=== PATIENT | male | born 1960 | race Caucasian/White ===

== ENCOUNTER 2017-07-15 21:34 | Inpatient (IN) | payer BC ==
[2017-07-15 22:16] LABS: Basophils % (A) 1 %; Eosinophils # (A) 0.1 k/uL (0-0.7); Eosinophils % (A) 2 %; HGB 16.1 gm/dL (13.0-17.5); Lymphocytes # (A) 2.5 k/uL (1.0-4.8); Lymphocytes % (A) 36 %; MCH 31.5 pg (25.0-35.0); MCHC 35.1 g/dL (31.0-37.0); MCV 89.9 fL (80.0-100.0); Mean Platelet Volume 7.3; Monocytes # (A) 0.6 k/uL (0-1.0); Monocytes % (A) 9 %; Neutrophils # (A) 3.7 k/uL (1.3-7.7); Neutrophils % (A) 52 %; Platelet Count 262 k/uL (150-450); RBC 5.12 m/uL (4.30-5.90); RDW 12.9 % (11.5-15.5)
[2017-07-15 22:26] LABS: ALT 82 U/L (21-72); AST 43 U/L (17-59); Alkaline Phosphatase 85 U/L (38-126); Anion Gap 14 mmol/L; Blood Urea Nitrogen 16 mg/dL (9-20); Calcium 9.5 mg/dL (8.4-10.2); Carbon Dioxide 24 mmol/L (22-30); Chloride 101 mmol/L (98-107); Glucose 341 mg/dL (74-99); Magnesium 1.8 mg/dL (1.6-2.3); Potassium 4.2 mmol/L (3.5-5.1); Sodium 139 mmol/L (137-145); Total Bilirubin 0.4 mg/dL (0.2-1.3); Total Protein 7.2 g/dL (6.3-8.2)
[2017-07-15 22:31] LABS: Prothrombin Time 10.2 sec (9.0-12.0)
[2017-07-15 22:39] LABS: Creatine Kinase 56 U/L (55-170)
[2017-07-15 22:40] LABS: Partial Thromboplastin Time 21.2 sec (22.0-30.0)
[2017-07-15 22:51] LABS: Appearance,Urine Clear (Clear); Bilirubin,Urine Negative (Negative); Blood,Urine Negative (Negative); Color,Urine Light Yellow; Glucose,Urine (UA) 4+ (Negative); Ketones,Urine Trace (Negative); Leukocyte Esterase,Urine Negative (Negative); Nitrite,Urine Negative (Negative); PH, Urine 5.5 (5.0-8.0); Protein,Urine Negative (Negative); Specific Gravity,Urine 1.034 (1.001-1.035); Urobilinogen,Urine <2.0 mg/dL (<2.0)
[2017-07-15 22:52] LABS: Creatine Kinase MB 1.1 ng/mL (0.0-2.4); Troponin I <0.012 ng/mL (0.000-0.034)
--- NOTE | 2017-07-15 22:52 | XR ---
EXAMINATION TYPE: XR chest 2V DATE OF EXAM: 07/15/2017 COMPARISON: NONE HISTORY: Palpitations. Syncope. TECHNIQUE: Frontal and lateral views of the chest are obtained. FINDINGS: Heart and mediastinum are normal. Lungs are clear. Diaphragm is normal. There are chest le ads. Bony thorax appears normal. IMPRESSION: Normal chest
[2017-07-15] MEDS ORDERED: SODIUM CHLORIDE 0.9% 1,000 ML IV ONE (23:11)
[2017-07-15] MEDS ORDERED: NALOXONE 0.4 MG/ML 1 ML VIAL IV PRN (23:29)
[2017-07-15] MEDS ORDERED: ONDANSETRON 4 MG/2 ML VIAL IVP PRN (23:29)
--- NOTE | 2017-07-15 23:36 | ED ---
General Adult HPI - General Chief complaint: Syncope Stated complaint: Syncope Time Seen by Provider: 07/15/17 22:06 Source: patient, RN notes reviewed, old records reviewed Mode of arrival: wheelchair Limitations: no limitations - History of Present Illness Initial comments: 57 yo male presenting with momentary alteration level of consciousness. Patient states he was walking in his home, he felt fluttering and palpitations in his chest, fell to the ground and was being woken by his . His states he was unconscious for less than 1 minute. He was confused momentarily however he regained consciousness quickly. There is no seizure activity. Patient denied any preceding chest pain or pain after the fall. There is no reported injury. Denies vomiting or diarrhea. He has some mild diarrhea yesterday. No fever or chills. According to his he has been eating and drinking normally. He has been consuming large amount of liquid. - Related Data Allergies Allergy/AdvReac Type Severity Reaction Status Date / Time No Known Allergies Allergy Verified 07/15/17 21:43 Review of Systems ROS Statement: Those systems with pertinent positive or pertinent negative responses have been documented in the HPI. ROS Other: All systems not noted in ROS Statement are negative. Past Medical History Past Medical History: No Reported History History of Any Multi-Drug Resistant Organisms: None Reported Past Surgical History: Orthopedic Surgery Past Psychological History: No Psychological Hx Reported Smoking Status: Never smoker Past Alcohol Use History: Occasional Past Drug Use History: None Reported General Exam Limitations: no limitations General appearance: alert, in no apparent distress Head exam: Present: atraumatic, normocephalic Eye exam: Present: normal appearance, PERRL ENT exam: Present: mucous membranes dry Neck exam: Present: normal inspection. Absent: tenderness, meningismus Respiratory exam: Present: normal lung sounds bilaterally. Absent: respiratory distress, wheezes Cardiovascular Exam: Present: regular rate, normal rhythm GI/Abdominal exam: Present: soft. Absent: distended, tenderness Extremities exam: Present: normal inspection, normal capillary refill. Absent: pedal edema, calf tenderness Neurological exam: Present: alert, oriented X3, CN II-XII intact. Absent: motor sensory deficit Psychiatric exam: Present: normal affect, normal mood Skin exam: Present: warm, dry, intact. Absent: cyanosis, diaphoretic Course Vital Signs 07/15/17 07/15/17 07/15/17 21:40 22:43 23:00 Temperature 98.2 F Pulse Rate 83 62 70 Respiratory 18 16 20 Rate Blood Pressure 129/87 146/87 139/88 O2 Sat by Pulse 95 97 97 Oximetry EKG Findings - EKG Comments: EKG Findings:: EKG: Normal sinus rhythm, nonspecific T-wave abnormality in lead 3. There is baseline artifact. No definitive signs of ischemia. Rate of 74, NJ interval 170, QRS duration 62, QTC 401 Medical Decision Making - Medical Decision Making 57 yo male with syncopal episode. EKG shows normal sinus rhythm. There is concern for arrhythmia given the preceding palpitations. Workup initiated in the ER. Normal white blood cell count, stable hemoglobin, electrolytes are within normal limits. Glucose is 341 after IV hydration and the patient has no known history of diabetes. Troponin negative. Urinalysis shows 4+ glucose and trace ketones. CO2 was 24 and anion gap is 14. No DKA. Patient receives additional 1 L normal saline bolus. Syncope may be related to dehydration secondary to new onset diabetes. However given the chief complaint of palpitations prior to syncopal episode. He will be observed for rehydration as well as telemetry monitoring. - Lab Data Result diagrams: 07/15/17 22:00 07/15/17 22:00 Lab Results 07/15/17 07/15/17 07/15/17 Range/Units 22:00 22:00 22:00 WBC 7.0 (3.8-10.6) k/uL RBC 5.12 (4.30-5.90) m/uL Hgb 16.1 (13.0-17.5) gm/dL Hct 46.0 (39.0-53.0) % MCV 89.9 (80.0-100.0) fL MCH 31.5 (25.0-35.0) pg MCHC 35.1 (31.0-37.0) g/dL RDW 12.9 (11.5-15.5) % Plt Count 262 (150-450) k/uL Neutrophils % 52 % Lymphocytes % 36 % Monocytes % 9 % Eosinophils % 2 % Basophils % 1 % Neutrophils # 3.7 (1.3-7.7) k/uL Lymphocytes # 2.5 (1.0-4.8) k/uL Monocytes # 0.6 (0-1.0) k/uL Eosinophils # 0.1 (0-0.7) k/uL Basophils # 0.0 (0-0.2) k/uL PT (9.0-12.0) sec INR (<1.2) APTT (22.0-30.0) sec Sodium 139 (137-145) mmol/L Potassium 4.2 (3.5-5.1) mmol/L Chloride 101 (98-107) mmol/L Carbon Dioxide 24 (22-30) mmol/L Anion Gap 14 mmol/L BUN 16 (9-20) mg/dL Creatinine 0.80 (0.66-1.25) mg/dL Est GFR (CKD-EPI)AfAm >90 (>60 ml/min/1.73 sqM) Est GFR (CKD-EPI)NonAf >90 (>60 ml/min/1.73 sqM) Glucose 341 H (74-99) mg/dL Calcium 9.5 (8.4-10.2) mg/dL Magnesium 1.8 (1.6-2.3) mg/dL Total Bilirubin 0.4 (0.2-1.3) mg/dL AST 43 (17-59) U/L ALT 82 H (21-72) U/L Alkaline Phosphatase 85 (38-126) U/L Total Creatine Kinase 56 (55-170) U/L CK-MB (CK-2) 1.1 (0.0-2.4) ng/mL CK-MB (CK-2) Rel Index 2.0 Troponin I <0.012 (0.000-0.034) ng/mL Total Protein 7.2 (6.3-8.2) g/dL Albumin 4.0 (3.5-5.0) g/dL Urine Color Urine Appearance (Clear) Urine pH (5.0-8.0) Ur Specific [place] (1.001-1.035) Urine Protein (Negative) Urine Glucose (UA) (Negative) Urine Ketones (Negative) Urine Blood (Negative) Urine Nitrite (Negative) Urine Bilirubin (Negative) Urine Urobilinogen (<2.0) mg/dL Ur Leukocyte Esterase (Negative) 07/15/17 07/15/17 Range/Units 22:00 22:44 WBC (3.8-10.6) k/uL RBC (4.30-5.90) m/uL Hgb (13.0-17.5) gm/dL Hct (39.0-53.0) % MCV (80.0-100.0) fL MCH (25.0-35.0) pg MCHC (31.0-37.0) g/dL RDW (11.5-15.5) % Plt Count (150-450) k/uL Neutrophils % % Lymphocytes % % Monocytes % % Eosinophils % % Basophils % % Neutrophils # (1.3-7.7) k/uL Lymphocytes # (1.0-4.8) k/uL Monocytes # (0-1.0) k/uL Eosinophils # (0-0.7) k/uL Basophils # (0-0.2) k/uL PT 10.2 (9.0-12.0) sec INR 1.0 (<1.2) APTT 21.2 L (22.0-30.0) sec Sodium (137-145) mmol/L Potassium (3.5-5.1) mmol/L Chloride (98-107) mmol/L Carbon Dioxide (22-30) mmol/L Anion Gap mmol/L BUN (9-20) mg/dL Creatinine (0.66-1.25) mg/dL Est GFR (CKD-EPI)AfAm (>60 ml/min/1.73 sqM) Est GFR (CKD-EPI)NonAf (>60 ml/min/1.73 sqM) Glucose (74-99) mg/dL Calcium (8.4-10.2) mg/dL Magnesium (1.6-2.3) mg/dL Total Bilirubin (0.2-1.3) mg/dL AST (17-59) U/L ALT (21-72) U/L Alkaline Phosphatase (38-126) U/L Total Creatine Kinase (55-170) U/L CK-MB (CK-2) (0.0-2.4) ng/mL CK-MB (CK-2) Rel Index Troponin I (0.000-0.034) ng/mL Total Protein (6.3-8.2) g/dL Albumin (3.5-5.0) g/dL Urine Color Light Yellow Urine Appearance Clear (Clear) Urine pH 5.5 (5.0-8.0) Ur Specific [place] 1.034 (1.001-1.035) Urine Protein Negative (Negative) Urine Glucose (UA) 4+ H (Negative) Urine Ketones Trace H (Negative) Urine Blood Negative (Negative) Urine Nitrite Negative (Negative) Urine Bilirubin Negative (Negative) Urine Urobilinogen <2.0 (<2.0) mg/dL Ur Leukocyte Esterase Negative (Negative) Disposition Clinical Impression: Syncope and collapse, Dehydration, Diabetes mellitus, new onset Disposition: ADMITTED IP TO THIS [facility] Condition: Stable Is patient prescribed a controlled substance at d/c from ED?: No Referrals: Justin Akbar MD [Primary Care Provider] - 1-2 days Decision to Admit Reason: Admit from EC Decision Date: 07/15/17 Decision Time: 23:36
[2017-07-16] MEDS: SODIUM CHLORIDE 0.9% 1,000 ML IV SCH ×2 (01:41→13:18)
[2017-07-16 07:35] LABS: Glucose,Whole Blood 240 mg/dL (75-99)
[2017-07-16] MEDS: metFORMIN 500 MG TAB PO SCH ×2 (07:45→17:42)
[2017-07-16] MEDS ORDERED: INSULIN REGULAR 100 UNIT in SODIUM CHLORIDE 0.9% 100 ML IV SCH (07:45)
[2017-07-16] MEDS ORDERED: INSULIN ASPART 100 UNIT/ML 1 ML 10 ML VIAL SQ ONE (07:49)
[2017-07-16 09:12] LABS: Basophils # (A) 0.1 k/uL (0-0.2); Basophils % (A) 1 %; Eosinophils # (A) 0.1 k/uL (0-0.7); Eosinophils % (A) 1 %; HCT 46.1 % (39.0-53.0); HGB 15.7 gm/dL (13.0-17.5); Lymphocytes # (A) 1.8 k/uL (1.0-4.8); Lymphocytes % (A) 30 %; MCH 31.5 pg (25.0-35.0); MCV 92.6 fL (80.0-100.0); Mean Platelet Volume 6.9; Monocytes # (A) 0.3 k/uL (0-1.0); Monocytes % (A) 6 %; Neutrophils # (A) 3.7 k/uL (1.3-7.7); Neutrophils % (A) 61 %; Platelet Count 233 k/uL (150-450); RBC 4.98 m/uL (4.30-5.90); RDW 13.1 % (11.5-15.5)
[2017-07-16 09:44] LABS: Glucose,Whole Blood 260 mg/dL (75-99)
[2017-07-16 09:44] LABS: ALT 82 U/L (21-72); AST 46 U/L (17-59); Albumin 3.8 g/dL (3.5-5.0); Alkaline Phosphatase 79 U/L (38-126); Anion Gap 12 mmol/L; Blood Urea Nitrogen 13 mg/dL (9-20); Calcium 8.8 mg/dL (8.4-10.2); Carbon Dioxide 23 mmol/L (22-30); Chloride 103 mmol/L (98-107); Glucose 296 mg/dL (74-99); Magnesium 1.6 mg/dL (1.6-2.3); Potassium 4.5 mmol/L (3.5-5.1); Sodium 138 mmol/L (137-145); Total Bilirubin 0.7 mg/dL (0.2-1.3); Total Protein 6.9 g/dL (6.3-8.2)
[2017-07-16 11:55] LABS: Glucose,Whole Blood 160 mg/dL (75-99)
[2017-07-16] MEDS ORDERED: INSULIN ASPART 100 UNIT/ML 1 ML 10 ML VIAL SQ SCH (12:30)
[2017-07-16 13:46] LABS: Glucose,Whole Blood 225 mg/dL (75-99)
[2017-07-16 15:41] LABS: Glucose,Whole Blood 93 mg/dL (75-99)
[2017-07-16 16:17] LABS: Glucose,Whole Blood 86 mg/dL (75-99)
[2017-07-16 17:01] LABS: Glucose,Whole Blood 124 mg/dL (75-99)
[2017-07-16] MEDS: LISINOPRIL 2.5 MG TAB PO SCH (17:42)
[2017-07-16] MEDS: ENOXAPARIN 40 MG/0.4 ML SYRINGE SQ SCH (17:42)
[2017-07-16 17:51] LABS: Hemoglobin A1C 10.7 % (4.0-6.0)
--- NOTE | 2017-07-16 17:57 | HP ---
HISTORY AND PHYSICAL DATE OF ADMISSION: 07/15/2017 DATE OF SERVICE: 07/16/2017 PRESENTING COMPLAINT: Passed out. HISTORY OF PRESENTING COMPLAINT: This is a very pleasant 57-year-old patient of Dr. Akbar. He was in the house yesterday, walking inside, when he felt a fluttering sensation in the chest and felt a bit lightheaded. Next thing he had passed out; patient may have passed out for about 20 seconds. There was no tongue-biting, no incontinence, no shaking episode. The patient came around nicely. The patient was brought into the ER, found to have a sugar of 341. UA was showing glucose 4+. Troponins were negative. EKG unremarkable. Patient was admitted to the hospital. I started the patient on IV insulin drip. Patient has been diagnosed with high cholesterol in the past. Patient did not take any medication. Patient states he has had fluttering sensation on and off, but never passed out before. He is relatively active. Patient has put on some weight. REVIEW OF SYSTEMS: CONSTITUTIONAL: Tired. HEENT: None. RESPIRATORY: None. CARDIOVASCULAR: As above. GASTROINTESTINAL: None. GENITOURINARY: None. MUSCULOSKELETAL: None. DERMATOLOGICAL: None. HEMATOLOGICAL: None. LYMPHATICS: None. PSYCHIATRY: None. NEUROLOGICAL: As above. PAST MEDICAL HISTORY: Hypercholesteremia. PAST SURGICAL HISTORY: Orthopedic surgery. SOCIAL HISTORY: Patient local [employer]. . Does not smoke or drink alcohol. FAMILY HISTORY: Both the patient had diabetes, type 2. One of the daughters had diabetes, type 1. HOME MEDICATIONS: None. ALLERGIES: NONE. PHYSICAL EXAMINATION: VITAL SIGNS ON PRESENTATION: Temperature 98.2, pulse 83, respiration 18, blood pressure 129/87, pulse ox 95% on room air. GENERAL APPEARANCE: Well built; BMI 33.2. Lying in bed, not in distress. EYES: Pupils equal. Conjunctivae normal. HEENT: External appearance of nose and ears normal. Oral cavity normal. NECK: JVD not raised. Mass not palpable. RESPIRATORY: Effort normal. Lungs are clear. CARDIOVASCULAR: First and second sounds normal. No edema. ABDOMEN: Soft, non-tender. Liver and spleen not palpable. LYMPHATIC: No lymph node palpable in neck or axillae. PSYCHIATRY: Alert and oriented x3. Mood and affect normal. NEUROLOGICAL: Pupils equal. Cranial nerves grossly intact. Power and sensation grossly intact. INVESTIGATIONS: White count 7, hemoglobin 16.1, potassium 4.2. BUN and creatinine are normal. Accu- Cheks 341, 240, 296. UA positive for glucose 4+, ketone trace. EKG shows some nonspecific findings. ASSESSMENT: 1. Syncope. This is a patient who had a further fluttering sensation, lightheadedness, passed out; most likely arrhythmia. Patient had these sensations on and off, but never much symptomatic until the passing out. Patient has been put on a cardiac cath lab manager to rule out any underlying arrhythmia. If that is negative, patient will need an outpatient event monitor at least. 2. New onset of diabetes mellitus, type 2. 3. Hyperlipidemia. PLAN: Patient is put on telemetry. Initially he was put on IV insulin drip. Will switch the patient over to metformin. Will get diabetes education, will have the patient see a dietitian. Will check a lipid profile in the morning. Patient's 2D echocardiogram has been ordered. Cardiology is being consulted. Care was discussed with the patient. Questions were answered. MMODL / IJN: [id number] /
[2017-07-16] MEDS ORDERED: ACETAMINOPHEN TAB 325 MG TAB PO PRN (20:37)
[2017-07-16 20:53] LABS: Glucose,Whole Blood 219 mg/dL (75-99)
[2017-07-16 22:42] VITALS: RESP 16
[2017-07-17 03:22] LABS: Cholesterol 221 mg/dL (<200); HDL Cholesterol 22 mg/dL (40-60); LDL Cholesterol,Calculated 151 mg/dL (0-99); Triglycerides 238 mg/dL (<150)
[2017-07-17] MEDS: SODIUM CHLORIDE 0.9% 1,000 ML IV SCH (05:57)
[2017-07-17 07:07] LABS: Glucose,Whole Blood 222 mg/dL (75-99)
[2017-07-17] MEDS: LISINOPRIL 2.5 MG TAB PO SCH ×2 (08:05→08:13)
[2017-07-17] MEDS: ENOXAPARIN 40 MG/0.4 ML SYRINGE SQ SCH ×2 (08:05→08:31)
[2017-07-17] MEDS: INSULIN ASPART 100 UNIT/ML 1 ML 10 ML VIAL SQ SCH ×2 (08:05→12:28)
[2017-07-17] MEDS: metFORMIN 500 MG TAB PO SCH (08:06)
[2017-07-17] MEDS ORDERED: ATORVASTATIN 20 MG TAB PO SCH (09:00)
[2017-07-17 09:55] VITALS: BMI 33.2
--- NOTE | 2017-07-17 10:07 | P.CRDCN ---
History of Present Illness History of present illness: Mr. Morocho is a pleasant 57-year-old male past medical history significant for gastroesophageal reflux disease and possible mild CAD. He states he underwent cardiac catheterization 8 years ago and was told he has no major blockages and was advised medical therapy. He was given medications however, stopped taking them. Those records are unavailable to be at this time. 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 We have been asked to see him in consultation for a syncopal episode. Sunday afternoon at home he felt an odd fluttering sensation in his chest. He has felt this feeling in the past and it has always subsided on its own with no specific alleviating or aggravating factor. He denies a rapid heartbeat just that is felt like it was flip flopping. He walked over to the window and felt lightheaded and next thing he knows he woke up on the floor. His was present at the time. No loss of bowel/bladder, no tongue biting, no shaking or seizure like activity. Once he woke up he felt good in his opinion. He denies symptoms of chest pain, shortness of breath, nausea, vomiting, diaphoresis or any further palpitations after waking up. Prior to the syncope he denies chest pain, shortness of breath , nausea, vomiting or diaphoresis. Since coming into the hospital he has been newly diagnosed with diabetes mellitus with an initial blood sugar of 341 and A1C 10.7. He has been started on insulin, metformin, atorvastatin and lisinopril. He denies any further symptoms of palpitations or dizziness since admission and telemetry tracings have been unremarkable. EKG on admission reveals sinus mechanism with no acute ST or T-wave abnormalities. Chest xray is negative for an acute cardiopulmonary process. Laboratory data reviewed, hgb 15.7, plt 233, sodium 138, potassium 4.5, magnesium 1.6, creatinine 0.75, cardiac enzymes negative x1, LDL 151, HDL 22, triglycerides 238, total cholesterol 221. He takes no daily medications. Review of Systems At the time of my exam: CONSTITUTIONAL: Denies fever. Denies chills. EYES: Denies blurred vision. Denies vision changes. Denies eye pain. EARS, NOSE, MOUTH & THROAT: Denies headache. Denies sore throat. Denies ear pain. CARDIOVASCULAR: Denies chest pain. Denies shortness of breath. Denies orthopnea. Denies PND. Denies palpitations. RESPIRATORY: Denies cough. GASTROINTESTINAL: Denies abdominal pain. Denies diarrhea. Denies constipation. Denies nausea. Denies vomiting. MUSCULOSKELETAL: Denies myalgias. INTEGUMENTARY: Denies pruitis. Denies rash. NEUROLOGIC: Denies numbness. Denies tingling. Denies weakness. PSYCHIATRIC: Denies anxiety. Denies depression. ENDOCRINE: Denies fatigue. Denies weight change. Denies polydipsia. Denies polyurina. GENITOURINARY: Denies burning, hematuria or urgency with micturation. HEMATOLOGIC: Denies history of anemia. Denies bleeding. Past Medical History Past Medical History: No Reported History Additional Past Medical History / Comment(s): possibly new diabetic 07/16/17 waiting for labs results History of Any Multi-Drug Resistant Organisms: None Reported Past Surgical History: Orthopedic Surgery Past Anesthesia/Blood Transfusion Reactions: No Reported Reaction Past Psychological History: No Psychological Hx Reported Smoking Status: Never smoker Past Alcohol Use History: Occasional Past Drug Use History: None Reported - Past Family History Father Family Medical History: Diabetes Mellitus Additional Family Medical History / Comment(s): heart failure Medications and Allergies Home Medications Medication Instructions Recorded Confirmed Type No Known Home Medications [No 07/15/17 07/16/17 History Known Home Medications] Allergies Allergy/AdvReac Type Severity Reaction Status Date / Time No Known Allergies Allergy Verified 07/16/17 08:51 Physical Exam Vitals: Vital Signs Temp Pulse Resp BP BP BP BP 07/17/17 05:56 96.8 F L 60 16 132/85 07/16/17 22:41 97.2 F L 64 16 151/88 07/16/17 16:18 147/88 147/88 123/79 07/16/17 16:00 20 07/16/17 14:43 98.3 F 72 20 129/77 Pulse Ox 07/17/17 05:56 96 07/16/17 22:41 96 07/16/17 16:18 07/16/17 16:00 07/16/17 14:43 95 Intake and Output 07/16/17 07/17/17 07/17/17 22:59 06:59 14:59 Intake Total 210 260 Balance 210 260 Intake: Intake, IV Titration 10 Amount Insulin Regular 100 unit 10 In Sodium Chloride 0.9% 100 ml @ Titrate IV .Q0M [facility] Rx#:[id number] Oral 200 260 Other: Voiding Method Toilet # Voids 1 1 Weight 111.13 kg Blood pressure 132/85 heart rate 68 afebrile maintaining oxygen saturation on room air GENERAL: This is a 57-year-old male in no apparent distress at the time of my examination. Obese. HEENT: Head is atraumatic, normocephalic. Pupils are equal, round. Sclerae anicteric. Conjunctivae are clear. Mucous membranes of the mouth are moist. Neck is supple. There is no jugular venous distention. No carotid bruit is heard. LUNGS: Clear to auscultation no wheezes, rales or rhonchi. No chest wall tenderness is noted on palpation or with deep breathing. HEART: Regular rate and rhythm without murmurs, rubs or gallops. S1 and S2 heard. ABDOMEN: Soft, nontender. Bowel sounds are heard. No organomegaly noted. EXTREMITIES: No evidence of peripheral edema and no calf tenderness noted. VASCULAR: Radial and dorsalis pedis pulses palpated, no evidence of clubbing. NEUROLOGIC: Patient is awake, alert and oriented x3. Results 07/16/17 08:54 07/16/17 08:54 Cardiac Enzymes 07/16/17 Range/Units 08:54 AST 46 (17-59) U/L Lipids 07/16/17 Range/Units 08:54 Triglycerides 238 H (<150) mg/dL Cholesterol 221 H (<200) mg/dL HDL Cholesterol 22 L (40-60) mg/dL Comprehensive Metabolic Panel 07/16/17 Range/Units 08:54 Sodium 138 (137-145) mmol/L Potassium 4.5 (3.5-5.1) mmol/L Chloride 103 (98-107) mmol/L Carbon Dioxide 23 (22-30) mmol/L BUN 13 (9-20) mg/dL Creatinine 0.75 (0.66-1.25) mg/dL Glucose 296 H (74-99) mg/dL Calcium 8.8 (8.4-10.2) mg/dL AST 46 (17-59) U/L ALT 82 H (21-72) U/L Alkaline Phosphatase 79 (38-126) U/L Total Protein 6.9 (6.3-8.2) g/dL Albumin 3.8 (3.5-5.0) g/dL Current Medications Generic Name Dose Route Start Last Admin Trade Name Freq PRN Reason Stop Dose Admin Acetaminophen 650 mg 07/16/17 20:37 07/16/17 20:42 Tylenol Tab PO 650 mg Q6HR PRN Administration Fever and/ or Mild Pain Atorvastatin Calcium 20 mg 07/17/17 09:00 07/17/17 08:05 Lipitor PO 20 mg DAILY [facility] Administration Enoxaparin Sodium 40 mg 07/16/17 18:00 07/17/17 08:31 Lovenox SQ Not Given DAILY [facility] Sodium Chloride 1,000 mls @ 75 mls/hr 07/15/17 23:30 07/17/17 05:57 Saline 0.9% IV Not Given .[id number] [facility] Insulin Aspart 0 unit 07/17/17 07:45 07/17/17 08:05 Novolog SQ 5 unit ACHS [facility] Administration Protocol Lisinopril 2.5 mg 07/16/17 17:15 07/17/17 08:13 Zestril PO Not Given DAILY [facility] Metformin HCl 500 mg 07/16/17 07:30 07/17/17 08:06 Glucophage PO 500 mg BID-W/MEALS [facility] Administration Naloxone HCl 0.2 mg 07/15/17 23:29 Narcan IV Q2M PRN Opioid Reversal Ondansetron HCl 4 mg 07/15/17 23:29 Zofran IVP Q8HR PRN Nausea And Vomiting Intake and Output 07/16/17 07/17/17 07/17/17 22:59 06:59 14:59 Intake Total 210 260 Balance 210 260 Intake: Intake, IV Titration 10 Amount Insulin Regular 100 unit 10 In Sodium Chloride 0.9% 100 ml @ Titrate IV .Q0M [facility] Rx#:[id number] Oral 200 260 Other: Voiding Method Toilet # Voids 1 1 Weight 111.13 kg 07/16/17 08:54 07/16/17 08:54 Assessment and Plan Assessment: ASSESSMENT 1. Syncope with preceding palpitations. 2. New onset diabetes mellitus, type 2 3. History of mild coronary artery disease per patient 4. Dyslipidemia 5. Hypertension PLAN Echocardiogram has been obtained and will be reviewed. Obtain old records of cardiac catheterization if possible. Check d-dimer and serial cardiac enzymes to rule out an acute coronary event. Perform stress echocardiogram to assess for stress induced cardiac ischemia. Add aspirin 81 mg to his daily regimen. Agree with atorvastatin and lisinopril. If above diagnostic testing is normal he is stable from a cardiac perspective to be discharged with a 30-day event monitor. Follow-up with Dr. Pardo in 5 weeks. Thank you kindly for this consultation. Nurse Practitioner note has been reviewed, I agree with a documented findings and plan of care. Patient was seen and examined.
[2017-07-17] MEDS ORDERED: ASPIRIN 81 MG PO SCH (10:15)
--- NOTE | 2017-07-17 10:17 | ECHOF ---
Referral Reason:syncope MEASUREMENTS -------- HEIGHT: 182.9 cm WEIGHT: 111.1 kg BP: 129/77 RVIDd: 3.4 cm (< 3.3) IVSd: 1.0 cm (0.6 - 1.1) LVIDd: 5.4 cm (3.9 - 5.3) LVPWd: 0.9 cm (0.6 - 1.1) IVSs: 1.4 cm LVIDs: 3.0 cm LVPWs: 1.4 cm LAESV Index (A-L): 24.84 ml/m Ao Diam: 3.2 cm (2.0 - 3.7) AV Cusp: 2.1 cm (1.5 - 2.6) LA Diam: 3.8 cm (2.7 - 3.8) EPSS: 0.6 cm MV E Walter: 0.72 m/s MV DecT: 287 ms MV A Walter: 0.93 m/s MV E/A Ratio: 0.78 RAP: 5.00 mmHg RVSP: 10.93 mmHg MV EF SLOPE: 90.54 mm/s (70 - 150) MV EXCURSION: 1.23 cm (> 18.000) FINDINGS -------- Sinus rhythm. This was a technically adequate study. The left ventricular size is normal. Left ventricular wall thickness is normal. Overall left vent ricular systolic function is normal with, an EF between 55 - 60 %. The right ventricle is normal in size and function. Normal LA size by volume 22+/-6 ml/m2. The right atrium is normal in size. The aortic valve is trileaflet, and appears structurally normal. No aortic stenosis or regurgitation. The mitral valve is normal. There is trace to mild mitral regurgitation. Trace tricuspid regurgitation present. Right ventricular systolic pressure is normal at < 35 mmHg. There is no evidence of pulmonary hypertension. Trace/mild (physiologic) pulmonic regurgitation. The aortic root size is normal. IVC Not well visulized. There is no pericardial effusion. CONCLUSIONS -------- 1. Sinus rhythm. 2. This was a technically adequate study. 3. The left ventricular size is normal. 4. Left ventricular wall thickness is normal. 5. Overall left ventricular systolic function is normal with, an EF between 55 - 60 %. 6. Normal LA size by volume 22+/-6 ml/m2. 7. The aortic valve is trileaflet, and appears structurally normal. No aortic stenosis or regurgitati on. 8. There is trace to mild mitral regurgitation. 9. Trace tricuspid regurgitation present. 10. Right ventricular systolic pressure is normal at < 35 mmHg. 11. There is no evidence of pulmonary hypertension. 12. Trace/mild (physiologic) pulmonic regurgitation. 13. The aortic root size is normal. 14. IVC Not well visulized. 15. There is no pericardial effusion. DERMATOLOGY PHYSICIAN: Luciano Castillo RDCS
[2017-07-17 11:59] LABS: Glucose,Whole Blood 231 mg/dL (75-99)
--- NOTE | 2017-07-17 13:17 | P.STRESS ---
- Stress Test Note Stress Test Results/Findings: Exam Performed: stress echo exercise Exam Date: 07/17/17 Reason for Exam: syncope Height: 6 ft Weight: 111.13 kg Protocol: Stress Echo Stage: III Duration of Exercise: 10.00 Resting Heart Rate: 71 Resting Blood Pressure: 142/63 Maximum Achieved Heart Rate: 148 Maximum Achieved Blood Pressure: 190/69 85% PMHR: 139 100% PMHR: 164 METS: 11.7 Technologist Comment: Stress Test Results/Findings: This is a 57-year-old gentleman who was admitted to the hospital with syncope and palpitations. Patient has diabetes and hypercholesterolemia and family history of ischemic heart disease. Stress data:. Baseline EKG showed sinus rhythm with normal MT and QRS duration. Blood pressure at rest is 140/60 with a pulse rate of 71. Patient walked on a [place] protocol for 10 minutes achieving a maximal heart rate of 148 with a blood pressure 180-95. EKGs taken during and after the exercise did not reveal any changes to suggest ischemia. Patient did not express any chest pain. No arrhythmias are detected. Echo data: Baseline echo images showed normal wall motion and thickening. Exercise echo images showed augmentation of wall motion and thickening in all segments. Final impression: #1. Negative stress test #2. Negative stress echo. #3. Good exercise capacity #4. No arrhythmias noted
[2017-07-17 14:18] VITALS: BP 146/86; PULSE 69; TEMP 98.6
--- NOTE | 2017-07-18 20:05 | DS ---
DISCHARGE SUMMARY DATE OF ADMISSION: July 15, 2017. DATE OF DISCHARGE: July 17, 2017. FINAL DIAGNOSES: 1. Syncope, possibly from underlying arrhythmia. 2. New onset of diabetes mellitus type 2, uncontrolled with hyperglycemia. 3. Hyperlipidemia. 4. Obesity BMI 33.2. HOSPITAL COURSE: This patient who has had fluttering sensation on and off, presented with episodes of fluttering sensation and having passed out. Did undergo a stress test that was negative. 2D echocardiogram was unremarkable. The patient telemetry remained negative here. Event monitor was placed on the patient. The patient's sugars were also running high. The patient's HbA1c came at 10.7. Patient started on metformin. Sugars started to come down to 200s which was in 300s when he initially started. LDL came back at 151. Patient was given diabetic teaching. On day of discharge, care was discussed in detail with the patient. Questions were answered. Also seen by neurodiagnostic technologist, Heath. Call was made to Cardiology and per them, patient is allowed to drive. PHYSICAL EXAMINATION: Lungs are clear. Cardiovascular: 1st and second sounds normal. DISCHARGE MEDICATIONS: 1. Aspirin 81 mg p.o. daily. 2. Lipitor 40 mg p.o. daily. 3. Zestril 2.5 mg p.o. daily. 4. Glucophage 500 mg p.o. b.i.d. with meals. Diet: Carbohydrate consistent. FOLLOWUP: Follow up with Dr. Akbar on July 25, 2017. Follow up with Dr. Pardo on August 29, 2017. The patient is to wear a Holter monitor for 4 weeks. Accu-Cheks every morning. Discharge planning more than [address] Akbar. LAYLA / MALORIEN: [id number] /
== END 2017-07-17 16:03 | disposition home or self-care (01) | DRG 312 ==
LOC: EC 21:34 → 4MS4W 23:31
PROVIDERS: ADMIT Hospitalist; ATTEND Hospitalist
DX: R55 Syncope and collapse (principal); E11.65 Type 2 diabetes mellitus with hyperglycemia; E66.9 Obesity, unspecified; E78.00 Pure hypercholesterolemia, unspecified; E86.0 Dehydration; I10 Essential (primary) hypertension; I25.10 Atherosclerotic heart disease of native coronary artery without angina pectoris; K21.9 Gastro-esophageal reflux disease without esophagitis; Z91.81 History of falling; Z68.33 Body mass index [BMI] 33.0-33.9, adult; Z82.49 Family history of ischemic heart disease and other diseases of the circulatory system; Z83.3 Family history of diabetes mellitus
CPT/HCPCS: 36415; 71046; 80053; 80061; 81003; 82550; 82553; 83036; 83735; 84484; 85025; 85379; 85610; 85730; 93005; 93270; 93271; 93306; 93351; 94760; 96360; 99285

== ENCOUNTER → 2017-09-07 | Outpatient (CLI) | payer BC ==
[2017-09-07 10:01] LABS: Basophils # (A) 0.1 k/uL (0-0.2); Basophils % (A) 1 %; Eosinophils # (A) 0.1 k/uL (0-0.7); Eosinophils % (A) 1 %; HCT 46.1 % (39.0-53.0); HGB 15.7 gm/dL (13.0-17.5); Lymphocytes # (A) 1.7 k/uL (1.0-4.8); Lymphocytes % (A) 21 %; MCH 31.3 pg (25.0-35.0); MCHC 34.1 g/dL (31.0-37.0); MCV 91.9 fL (80.0-100.0); Mean Platelet Volume 7.3; Monocytes # (A) 0.5 k/uL (0-1.0); Monocytes % (A) 7 %; Neutrophils # (A) 5.4 k/uL (1.3-7.7); Neutrophils % (A) 69 %; Platelet Count 265 k/uL (150-450); RBC 5.02 m/uL (4.30-5.90); RDW 13.1 % (11.5-15.5); WBC 7.9 k/uL (3.8-10.6)
[2017-09-07 10:12] LABS: ALT 78 U/L (21-72); AST 41 U/L (17-59); Albumin 4.1 g/dL (3.5-5.0); Alkaline Phosphatase 73 U/L (38-126); Anion Gap 9 mmol/L; Blood Urea Nitrogen 15 mg/dL (9-20); Calcium 9.2 mg/dL (8.4-10.2); Carbon Dioxide 25 mmol/L (22-30); Chloride 104 mmol/L (98-107); Glucose 236 mg/dL (74-99); Potassium 4.5 mmol/L (3.5-5.1); Sodium 138 mmol/L (137-145); Total Bilirubin 0.9 mg/dL (0.2-1.3); Total Protein 7.3 g/dL (6.3-8.2)
== END | disposition home or self-care (01) ==
LOC: LABPAT 09:22
PROVIDERS: ATTEND Internal Medicine Cardiovascular Disease
DX: Z01.812 Encounter for preprocedural laboratory examination (principal); R07.9 Chest pain, unspecified
CPT/HCPCS: 36415; 80053; 85025

== ENCOUNTER → 2017-09-07 | Outpatient (CLI) | payer BC ==
[2017-09-07 10:39] LABS: Prostate Specific Antigen 0.33 ng/mL (0.00-4.00)
[2017-09-07 17:33] LABS: Hemoglobin A1C 9.3 % (4.0-6.0)
== END | disposition home or self-care (01) ==
LOC: LABWHC1 09:25
PROVIDERS: ATTEND Family Medicine
DX: E11.65 Type 2 diabetes mellitus with hyperglycemia (principal); Z13.9 Encounter for screening, unspecified
CPT/HCPCS: 36415; 80061; 82043; 82570; 83036; 84153; 84443; 86803

== ENCOUNTER 2017-09-13 10:56 | Day surgery (SDC) | payer BC ==
[2017-09-05 14:44] VITALS: BMI 33.2
[~2017-09-13 10:56] MED LIST: ALPRAZolam 0.25 MG TAB PO PRN; ALPRAZolam 0.5 MG TAB PO PRN; ASPIRIN 325 MG TAB PO STA; ATORVASTATIN 80 MG TAB PO STA; NITROGLYCERIN SL TABS 0.4 MG TAB SUBLINGUAL PRN; SODIUM CHLORIDE 0.9% 1,000 ML in EMPTY BAG 1 BAG IV ONE
[2017-09-13] MEDS ORDERED: ASPIRIN 81 MG ONE (11:19)
[2017-09-13 11:42] LABS: Glucose,Whole Blood 218 mg/dL (75-99)
[2017-09-13] MEDS ORDERED: VERAPAMIL 2.5 MG/ML 2 ML AMP ONE (11:55)
[2017-09-13] MEDS ORDERED: LIDOCAINE 1% INJ 10MG/ML (20 ML MDV) ONE (11:55)
[2017-09-13] MEDS ORDERED: fentaNYL (PF) 50 MCG/ML 2 ML AMP ONE (12:06)
[2017-09-13] MEDS ORDERED: MIDAZOLAM 2 MG/2 ML VIAL ONE (12:06)
[2017-09-13] MEDS: fentaNYL (PF) 50 MCG/ML 2 ML AMP IV ONE ×2 (12:12→12:20)
[2017-09-13] MEDS: MIDAZOLAM 2 MG/2 ML VIAL IVP ONE ×2 (12:12→12:19)
[2017-09-13] MEDS ORDERED: LIDOCAINE 1% INJ 10MG/ML (20 ML MDV) SQ ONE (12:17)
[2017-09-13] MEDS ORDERED: VERAPAMIL SYRINGE (5 MG/10 ML) INTRAARTER ONE ×2 (12:20→12:51)
[2017-09-13] MEDS ORDERED: INSULIN ASPART 100 UNIT/ML 1 ML 10 ML VIAL SQ SCH (12:30)
[2017-09-13] MEDS ORDERED: HEPARIN SODIUM 1,000 UN/ML (10ML VL) IV ONE (12:42)
[2017-09-13] MEDS ORDERED: IOPAMIDOL-370 125ML BTL INJ ONE (12:46)
[2017-09-13] MEDS ORDERED: IOPAMIDOL-300 50ML BTL INJ ONE (12:51)
[2017-09-13] MEDS ORDERED: RX INFO: IV CONTRAST WAS GIVEN 1 EACH MISC MISCELLANE PRN (12:59)
[2017-09-13] MEDS ORDERED: SODIUM CHLORIDE 0.9% 1,000 ML IV SCH (13:00)
[2017-09-13 13:52] LABS: Glucose,Whole Blood 185 mg/dL (75-99)
[2017-09-13 14:07] VITALS: RESP 16; TEMP 97.6
[2017-09-13 16:51] VITALS: PULSE 61
[2017-09-13 16:52] VITALS: BP 115/74
--- NOTE | 2017-09-13 17:44 | P.CARDCATH ---
Date of Procedure: 09/13/17 Preoperative Diagnosis: Recurrent chest pains with risk factors of hypertension, hypercholesteremia, and diabetes. Negative stress test Postoperative Diagnosis: Mild coronary artery disease without any critical lesions Procedure(s) Performed: Left heart catheterization without left ventriculography Description of Procedure: HISTORY: This is a 57-year-old gentleman with history of recurrent chest pains. Patient has risk factors of hypertension, hyperglycemia and diabetes. He had a recent stress test that was negative for ischemia. However because of risk factors and family history, patient is concerned and a cardiac catheterization is scheduled for definitive diagnosis. CONSENT:I have discussed the risks, benefits and alternative therapies for the above-mentioned procedure and for both sedation/analgesia as well as necessary blood product administration, if indicated, as they pertain to this patient. The patient has indicated understanding and acceptance of the risks and procedures discussed. PROCEDURE: Patient was brought to the lab in a fasting state. Patient was given some IV sedation. The right wrist is infiltrated with lidocaine and right radial artery was entered using Seldinger technique. A 6-N[place]ibian catheter was left in place and selective coronary arteriography was performed. Patient tolerated the procedure well. TR band was applied for hemostasis. No immediate complications were noted and patient was transferred to [facility] in a stable condition Conscious Sedation: Versed 1mg Fentanyl 25g Duration 43minutes HEMODYNAMICS: The aortic pressure was about 130/80. Left ankle end-diastolic pressure is about 16. There was no gradient across the aortic valve SELECTIVE CORONARY ARTERIOGRAPHY: LEFT MAIN: This is difficult to engage. There is almost separate origin of the left left anterior descending and left circumflex coronary artery THE LEFT ANTERIOR DESCENDING CORONARY ARTERY: Could not be selectively engaged. Subselective injection showed mild Wrinkling of the ostium of the left anterior descending. Rest of the vessel appeared to be free of any significant occlusive disease. The vessel appeared to be small to moderate in caliber THE LEFT CIRCUMFLEX AND IS CORONARY ARTERY:. This is a good caliber vessel giving rise good-sized OM branch. The circumflex and is coronary artery and branches are free of occlusive disease THE RIGHT CORONARY ARTERY:. This is a good caliber dominant vessel. Mild ectatic changes noted in the proximal portion. No Sigmund obstructive disease noted LEFT VENTRICULOGRAPHY:. Not performed FINAL IMPRESSION:. Mild intimal disease. No Sigmund obstructive disease noted PLAN:. Maximal medical therapy and this factor modification PROGNOSIS: fair.
== END 2017-09-13 17:18 | disposition home or self-care (01) ==
LOC: CATHCVL 10:56 → 3OBS 12:53 → CATHCVL 17:18
PROVIDERS: ATTEND Internal Medicine Cardiovascular Disease
DX: I25.10 Atherosclerotic heart disease of native coronary artery without angina pectoris (principal); I10 Essential (primary) hypertension; E11.9 Type 2 diabetes mellitus without complications; E78.00 Pure hypercholesterolemia, unspecified; E66.9 Obesity, unspecified; Z68.33 Body mass index [BMI] 33.0-33.9, adult; Z82.49 Family history of ischemic heart disease and other diseases of the circulatory system; Z79.84 Long term (current) use of oral hypoglycemic drugs; Z79.82 Long term (current) use of aspirin; Z79.899 Other long term (current) drug therapy
CPT/HCPCS: 93458; C1894; C1769; J2250; J2001; J3010; J1644; Q9967 ×2

== ENCOUNTER 2021-11-18 06:57 | Day surgery (SDC) | payer BC ==
[2021-08-17 11:35] VITALS: BMI 32.8
[~2021-11-18 06:57] MED LIST changes: -ALPRAZolam 0.25 MG TAB PO PRN; -ALPRAZolam 0.5 MG TAB PO PRN; -ASPIRIN 325 MG TAB PO STA; -ATORVASTATIN 80 MG TAB PO STA; +LACTATED RINGERS 1,000 ML IV SCH; -NITROGLYCERIN SL TABS 0.4 MG TAB SUBLINGUAL PRN; -SODIUM CHLORIDE 0.9% 1,000 ML in EMPTY BAG 1 BAG IV ONE
[2021-11-18 07:27] LABS: Glucose,Whole Blood 146 mg/dL (70-110)
[2021-11-18 07:28] VITALS: TEMP 97
[2021-11-18] MEDS ORDERED: PROPOFOL 10 MG/ML 20 ML VIAL IV ONE (08:02)
--- NOTE | 2021-11-18 08:18 | P.PCN ---
Date of Procedure: 11/18/21 Procedure(s) Performed: BRIEF HISTORY: Patient is a 61-year-old pleasant white male scheduled for an elective colonoscopy as a part of PROCEDURE PERFORMED: Colonoscopy. PREOPERATIVE DIAGNOSIS: Screening for colon cancer. IV sedation per Anesthesia. PROCEDURE: After informed consent was obtained, the patient, was brought into the endoscopy unit. IV sedation was administered by Anesthesia under continuous monitoring. Digital rectal examination was normal. Initially the Olympus CF-160 flexible video colonoscope was then inserted in the rectum, gradually advanced into the cecum without any difficulty. Careful examination was performed as the scope was gradually being withdrawn. Ileocecal valve and the appendiceal orifice were visualized and appeared normal. Prep was excellent. Mucosa of the cecum, ascending colon, transverse colon, descending colon, sigmoid colon, and rectum appeared normal. Retroflexion was performed in the rectum and no lesions were seen. The patient tolerated the procedure well. IMPRESSION: Normal-appearing colon from rectum to cecum with no evidence of colorectal neoplasia. RECOMMENDATIONS: Findings of this examination were discussed with the patient as well as his family. He was advised to have a repeat screening colonoscopy in 10 years..
[2021-11-18 08:26] VITALS: BP 104/69; PULSE 69
[2021-11-18 08:44] VITALS: RESP 20
== END 2021-11-18 08:52 | disposition home or self-care (01) ==
LOC: ORWHC2ENDO 06:57
PROVIDERS: ATTEND Internal Medicine Gastroenterology
DX: Z12.11 Encounter for screening for malignant neoplasm of colon (principal); I10 Essential (primary) hypertension; E78.5 Hyperlipidemia, unspecified; E11.9 Type 2 diabetes mellitus without complications; Z79.84 Long term (current) use of oral hypoglycemic drugs; Z79.899 Other long term (current) drug therapy
CPT/HCPCS: 45378; J2704

== ENCOUNTER → 2024-01-24 | Outpatient (CLI) | payer BC ==
--- NOTE | 2024-01-24 12:41 | USB ---
Reason for Exam: Clinical finding. Technique: Method: Targeted. Findings: Small hypoechoic area within the subcutaneous region measuring 6 x 2 mm likely reflects sebaceous cyst. Overall Assessment: Benign, BI-RAD 2 Electronically signed and approved by: Valeriy Bauer M.D. Radiologis
== END | disposition home or self-care (01) ==
LOC: RADUSWWP 08:25
PROVIDERS: ATTEND Family Medicine
DX: L72.3 Sebaceous cyst (principal)